=== PATIENT | male | born 1955 | race Caucasian/White ===

== ENCOUNTER 2018-10-18 07:03 | Outpatient (CLI) | payer OTHER, SELFPAY ==
[2018-10-18 07:42] LABS: HCT 50.1 % (40.0-50.0); HGB 17.7 g/dL (13.5-17.5); Mean Corp. HGB Concentration 35.3 g/dL (32.0-36.0); Mean Corpuscular Hemoglobin 30.7 pg (27.0-33.0); Mean Platelet Volume 9.3 fL (8.0-11.0); Platelet Count 204 x1000/uL (130-400); RBC 5.76 m/cumm (4.50-6.00); RBC Distribution Width 13.3 % (11.8-14.1); White Blood Cell Count 5.87 k/cumm (4.4-10.8)
[2018-10-18 08:36] LABS: ALT 59 U/L (12-78); AST 26 U/L (15-37); Alkaline Phosphatase 110 U/L (46-116); Anion Gap 14.2 mmol/L (3-11); BUN 18 mg/dL (7-18); Bilirubin, Total 0.5 mg/dL (0.2-1.0); CO2 20.8 mmol/L (21.0-32.0); CREATININE 1.25 mg/dL (0.70-1.30); Calcium 8.8 mg/dL (8.5-10.1); Chloride 104 mmol/L (98-107); Cholesterol 229 mg/dL (50-200); Estimated GFR 58.72 (mL/min/1.73m2); Glucose 97 mg/dL (70-100); HDL Cholesterol 34 mg/dL (40-60); LDL CHOLESTEROL 149 mg/dL (<100); Potassium 4.2 mmol/L (3.5-5.1); Sodium 139 mmol/L (136-145); Total Protein 7.6 g/dL (6.4-8.2); Triglyceride 250 mg/dL (30-150)
== END 2018-10-18 07:23 ==
PROVIDERS: PCP Nurse Practitioner; Visit Provider Nurse Practitioner
DX: N18.9 Chronic kidney disease, unspecified (principal); R73.01 Impaired fasting glucose; Z86.711 Personal history of pulmonary embolism; Z95.828 Presence of other vascular implants and grafts
CPT/HCPCS: 36415; 80053; 80061; 83721; 85027

== ENCOUNTER 2021-05-07 01:35 | Outpatient (CLI) | payer OTHER, SELFPAY ==
[2021-05-07 08:24] LABS: HCT 49.2 % (40.0-50.0); HGB 16.7 g/dL (13.5-17.5); MCH 30.4 pg (27.0-33.0); MCHC 33.9 % (32.0-36.0); MCV 89.5 fL (80-95); MPV 9.1 fL (8.0-11.0); Platelet Count 184 10^3/uL (130-400); RDW 12.4 % (11.8-14.1); RDW-SD 41.4 fL; WBC 5.92 10^3/uL (4.4-10.8)
[2021-05-07 08:58] LABS: ALT 47 U/L (16-63); AST 25 U/L (15-37); Albumin 3.9 g/dL (3.4-5.0); Alkaline Phosphatase 115 U/L (46-116); Anion Gap 10.1 mmol/L (3-11); BUN 15 mg/dL (7-18); Bilirubin, Total 0.6 mg/dL (0.2-1.0); CO2 24.9 mmol/L (21.0-32.0); CREATININE 1.2 mg/dL (0.70-1.30); Calcium 8.8 mg/dL (8.5-10.1); Calculated LDL 173 mg/dL (<100); Chloride 107 mmol/L (98-107); Cholesterol 233 mg/dL (<200); Glucose 95 mg/dL (74-106); HDL Cholesterol 38 mg/dL (40-60); Sodium 142 mmol/L (136-145); Total Protein 7.3 g/dL (6.4-8.2); Triglyceride 113 mg/dL (<150)
== END 2021-05-07 01:36 | disposition home or self-care (01) ==
LOC: LBO 01:35
PROVIDERS: PCP Nurse Practitioner; Visit Provider Nurse Practitioner
DX: E78.00 Pure hypercholesterolemia, unspecified (principal); Z86.711 Personal history of pulmonary embolism; Z79.01 Long term (current) use of anticoagulants; Z95.828 Presence of other vascular implants and grafts
CPT/HCPCS: 36415; 80053; 80061; 85027

== ENCOUNTER → 2023-02-08 01:58 | Outpatient (CLI) | payer MEDICARE, BC, SELFPAY ==
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
== END ==
PROVIDERS: PCP Nurse Practitioner; Visit Provider Nurse Practitioner
DX: Z13.6 Encounter for screening for cardiovascular disorders (principal)
CPT/HCPCS: 36415; 76706; 80053; 80061; 83036; 85025

== ENCOUNTER 2023-02-08 09:07 | Outpatient (CLI) | payer MEDICARE, BC, SELFPAY ==
[2023-02-08 08:14] LABS: Abs Immature Grans 0.01 10^3/uL (0.0-0.06); Absolute Basophil Count 0.06 10^3/uL (0.0-0.2); Absolute Eosinophil Count 0.29 10^3/uL (0.0-0.7); Absolute Lymphocyte Count 1.79 10^3/uL (1.2-3.4); Absolute Monocyte Count 0.44 10^3/uL (0.1-0.8); Absolute Neutrophil Count 3.45 10^3/uL (1.2-6.7); Eosinophils % 4.8; HCT 47.4 % (40.0-50.0); HGB 16.5 g/dL (13.5-17.5); Immature Grans % 0.2; Lymphocytes % 29.6; MCH 31.4 pg (27.0-33.0); MCHC 34.8 % (32.0-36.0); MCV 90 fL (80-95); MPV 9.1 fL (8.0-11.0); Monocytes % 7.3; Neutrophils % 57.1; Platelet Count 225 10^3/uL (130-400); RBC 5.26 10^6/uL (4.36-5.78); RDW 12.8 % (11.8-14.1); RDW-SD 42.4 fL; WBC 6.04 10^3/uL (4.4-10.8)
[2023-02-08 08:45] LABS: ALT 33 U/L (16-63); AST 14 U/L (15-37); Albumin 3.5 g/dL (3.4-5.0); Alkaline Phosphatase 103 U/L (46-116); Anion Gap 10.5 mmol/L (3-11); BUN 16 mg/dL (7-18); Bilirubin, Total 0.5 mg/dL (0.2-1.0); CO2 22.5 mmol/L (21.0-32.0); CREATININE 1.3 mg/dL (0.70-1.30); Calcium 9.2 mg/dL (8.5-10.1); Calculated LDL 139 mg/dL (<100); Chloride 106 mmol/L (98-107); Cholesterol 197 mg/dL (<200); Estimated GFR 60.96 (mL/min/1.73m2); Glucose 106 mg/dL (74-106); HDL Cholesterol 38 mg/dL (40-60); Potassium 4.3 mmol/L (3.5-5.1); Sodium 139 mmol/L (136-145); Total Protein 7.4 g/dL (6.4-8.2); Triglyceride 104 mg/dL (<150)
[2023-02-08 09:15] LABS: Hemoglobin A1C 5.7 % (<5.7)
== END 2023-02-08 09:08 | disposition home or self-care (01) ==
LOC: LBO 09:08
PROVIDERS: PCP Nurse Practitioner; Visit Provider Nurse Practitioner
DX: E78.00 Pure hypercholesterolemia, unspecified (principal); Z79.01 Long term (current) use of anticoagulants; Z86.711 Personal history of pulmonary embolism; Z95.828 Presence of other vascular implants and grafts; R73.01 Impaired fasting glucose
CPT/HCPCS: 36415; 80053; 80061; 83036; 85025

== ENCOUNTER 2023-10-05 11:08 | Emergency (ER) | payer MEDICARE, BC, SELFPAY ==
[2023-10-05] VITALS (18 sets, daily range): BP systolic 111–156; BP diastolic 71–100; PULSE 79–91; RESP 12–28; TEMP 37.2; O2SAT 95–100
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
[2023-10-05 11:28] LABS: Abs Immature Grans 0.18 10^3/uL (0.0-0.06); Absolute Basophil Count 0.08 10^3/uL (0.0-0.2); Absolute Eosinophil Count 0.26 10^3/uL (0.0-0.7); Absolute Lymphocyte Count 3.05 10^3/uL (1.2-3.4); Absolute Monocyte Count 0.65 10^3/uL (0.1-0.8); Absolute Neutrophil Count 5.31 10^3/uL (1.2-6.7); Basophils % 0.8 %; Eosinophils % 2.7 %; HCT 46.8 % (40.0-50.0); HGB 16.3 g/dL (13.5-17.5); Immature Grans % 1.9 %; MCH 31.3 pg (27.0-33.0); MCHC 34.8 % (32.0-36.0); MCV 90 fL (80-95); MPV 9.2 fL (8.0-11.0); Monocytes % 6.8 %; Neutrophils % 55.8 %; Platelet Count 219 10^3/uL (130-400); RDW 13.1 % (11.8-14.1); RDW-SD 42.8 fL; WBC 9.53 10^3/uL (4.4-10.8)
[2023-10-05 11:44] LABS: ALT 52 U/L (16-63); AST 32 U/L (15-37); Albumin 3.5 g/dL (3.4-5.0); Alkaline Phosphatase 113 U/L (46-116); Anion Gap 10.5 mmol/L (3-11); BUN 17 mg/dL (7-18); Bilirubin, Total 0.4 mg/dL (0.2-1.0); CO2 24.5 mmol/L (21.0-32.0); CREATININE 1.4 mg/dL (0.70-1.30); Calcium 8.4 mg/dL (8.5-10.1); Chloride 108 mmol/L (98-107); Estimated GFR 55.43 (mL/min/1.73m2); Glucose 107 mg/dL (74-106); Potassium 4.1 mmol/L (3.5-5.1); Sodium 143 mmol/L (136-145); Total Protein 7.1 g/dL (6.4-8.2)
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
[2023-10-05] MEDS: Normal Saline 1,000 ML 1000 ML IV (12:00)
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
[2023-10-05] MEDS: Omnipaque 350 MG/ML 100 ML BTL IJ (12:05)
[2023-10-05 12:06] LABS: INR 1.2 (0.9-1.1); Prothrombin Time 11.6 sec (9.1-11.1)
[2023-10-05 12:06] LABS: Bilirubin Negative (Negative); Blood Large (Negative); Clarity Sl Cloudy (Clear); Glucose Negative (Negative); Ketones Negative (Negative); Leukocyte Esterase Negative (Negative); Nitrite Negative (Negative); Urobilinogen 0.2 mg/dL (Up to 0.2); pH 5.5 (5-8)
[2023-10-05] MEDS: Normal Saline - Diluent 50 ML VIAL IJ (12:06)
[2023-10-05 12:53] LABS: Bacteria Negative HPF (Negative); C & S Indicated? No; Casts 3-5 Fine Granular LPF (Negative); Crystals Negative HPF (Negative); Epithelial Cells Rare HPF (Negative); Mucus Negative (Negative); RBC >50 HPF (0-2); WBC 0-2 HPF (0-5)
[2023-10-05] MEDS: fentaNYL 100 MCG/2 ML VIAL 75 MCG IVP (12:59)
== END 2023-10-05 12:54 | disposition short-term general hospital (02) ==
PROVIDERS: Emergency Provider Emergency Medicine; PCP Nurse Practitioner
DX: S22.43XA Multiple fractures of ribs, bilateral, initial encounter for closed fracture (principal); S27.321A Contusion of lung, unilateral, initial encounter; S36.039A Unspecified laceration of spleen, initial encounter; E78.00 Pure hypercholesterolemia, unspecified; Z86.711 Personal history of pulmonary embolism; Z79.01 Long term (current) use of anticoagulants; V28.49XA Other motorcycle driver injured in noncollision transport accident in traffic accident, initial encounter
CPT/HCPCS: 36415; 74177; 80053; 86850; 86900; 86901; 93005; 96361; 96374; 99285; 70450; 71045; 71260; 72125; 81003; 81015; 85025; 85610; 85730; 93010; J3010; J3490

== ENCOUNTER → 2023-11-04 00:18 | Outpatient (CLI) | payer MEDICARE, BC, SELFPAY ==
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
== END ==
PROVIDERS: PCP Nurse Practitioner; Visit Provider Emergency Medicine
DX: K76.0 Fatty (change of) liver, not elsewhere classified (principal)
CPT/HCPCS: 76700

== ENCOUNTER → 2023-12-15 00:56 | Outpatient (CLI) | payer MEDICARE, BC, SELFPAY ==
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
[2023-12-15] MEDS: Gadoterate meglumine 20 ML VIAL IVP (10:23)
[2023-12-15] MEDS: Normal Saline - Diluent 50 ML VIAL IJ (10:24)
== END ==
PROVIDERS: PCP Nurse Practitioner; Visit Provider Nurse Practitioner
DX: J94.2 Hemothorax (principal)
CPT/HCPCS: 74183; 71046